=== PATIENT | male | born 1985 | race Caucasian/White ===

== ENCOUNTER 2016-12-11 18:50 | Emergency (ER) | payer BC ==
[~2016-12-11] VITALS: Ht 180.3 cm; Wt 72.6 kg
[2016-12-11 19:10] VITALS: BP 136/85
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
[2016-12-11] MEDS ORDERED: TdaP Vaccine 0.5ml Syr IM ONE (21:45)
[2016-12-11] MEDS ORDERED: Hydrogen Peroxide 120ml Bottle TOPIC ONE ×2 (22:10→22:30)
[2016-12-11] MEDS ORDERED: Bacitracin Oint UD TOPIC ONE (22:30)
[2016-12-11 23:03] VITALS: BP 130/80
[2016-12-11 23:04] VITALS: BP 136/85
--- NOTE | 2016-12-12 09:00 | Diagnostic Imaging Report ---
Indication: PAIN, status post fall, laceration left side of head Technique: Continuous helical CT scanning of the head was performed without intravenous contrast material. Axial and coronal 5 mm sections were generated. Radiation dose was minimized using automated exposure control Dose: Total Dose Length Product - DLP [address] Dose Index - CTDIvol(s) 70.38 mGy. Comparison: And Findings: The ventricular system is normal in size and configuration. There is no shift of midline structures. No abnormal extra-axial fluid collections are noted. There is no evidence of intracerebral bleeding. No other abnormal high or low density areas are noted within the brain. There is a right posterior high parietal scalp contusion. Visualized orbits and sinuses are unremarkable. The calvarium is intact. Impression: Right-sided extra cranial scalp soft tissue injury Negative for acute intracranial bleed or mass effect This agrees with the preliminary interpretation provided overnight by Dr. Roy The CT scanner at [facility] is accredited by the [employer] [place] [employer] and the scans are performed using protocols designed to limit radiation exposure to as low as reasonably achievable to attain images of sufficient resolution adequate for diagnostic evaluation.
== END 2016-12-11 23:05 | disposition home or self-care (01) ==
LOC: EDBD 18:50 → EMR 19:50
DX: S01.01XA Laceration without foreign body of scalp, initial encounter (principal); S80.812A Abrasion, left lower leg, initial encounter; S80.212A Abrasion, left knee, initial encounter; S80.811A Abrasion, right lower leg, initial encounter; S80.211A Abrasion, right knee, initial encounter; S70.312A Abrasion, left thigh, initial encounter; S30.810A Abrasion of lower back and pelvis, initial encounter; S09.8XXA Other specified injuries of head, initial encounter; V48.0XXA Car driver injured in noncollision transport accident in nontraffic accident, initial encounter; Y92.89 Other specified places as the place of occurrence of the external cause; Z23 Encounter for immunization; L02.415 Cutaneous abscess of right lower limb; L02.416 Cutaneous abscess of left lower limb
CPT/HCPCS: 70450; 90471; 90715